=== PATIENT | female | born 1995 | race Caucasian/White ===

== ENCOUNTER 2020-01-21 11:35 | Outpatient (CLI) | payer OTHER ==
[2020-01-21 12:13] LABS: APPEARANCE,URINE CLEAR; BILIRUBIN,URINE NEGATIVE (NEGATIVE); COLOR,URINE YELLOW; GLUCOSE, URINE NEGATIVE (NEGATIVE); KETONES,URINE NEGATIVE (NEGATIVE); LEUKOCYTE ESTERASE,URINE NEGATIVE (NEGATIVE); NITRITE,URINE NEGATIVE (NEGATIVE); PROTEIN,URINE NEGATIVE (NEGATIVE); URINE SPECIFIC GRAVITY 1.011; UROBILINOGEN,URINE NEGATIVE mg/dL (<2.0)
[2020-01-21 12:27] LABS: EPITHELIALS (WET MOUNT) 3+ EPITHELIALS SEEN; RBCS (WET MOUNT) 3+ RBCS SEEN; T.VAGINALIS (WET MOUNT) NO TRICHOMONAS SEEN; WBCS (WET MOUNT) FEW WBCS SEEN; YEAST (WET MOUNT) NO YEAST SEEN
[2020-01-21 12:32] LABS: URINE AMPHETAMINES SCREEN NEGATIVE; URINE BARBITURATES SCREEN NEGATIVE; URINE BENZODIAZEPINES SCREEN NEGATIVE; URINE COCAINE SCREEN NEGATIVE; URINE MARIJUANA (THC) SCREEN NEGATIVE; URINE METHADONE SCREEN NEGATIVE; URINE PHENCYCLIDINE SCREEN NEGATIVE
[2020-01-21] MEDS ORDERED: RINGERS SOLUTION,LACTATED 1,000 ML IV PRN (12:33)
--- NOTE | 2020-01-21 13:11 | Non Stress Test Report ---
Non Stress Test Datetime Report Generated by CPN: 01/21/2020 13:10 DEMOGRAPHIC Test Number: 1 EGA NST: 33.3 INDICATION Indication for Study (NST) Other: vaginal bleeding MONITORING Monitor Explained: Monitor Explained; Test Explained; Patient Verbalized Understanding Time on Monitor: 01/21/2020 12:47 Time off Monitor: 01/21/2020 13:07 NST Duration: 20 NST INTERVENTIONS NST Interventions: IV Fluids Physician Notified NST: Dr Hernandez BABY A: [id number] BABY A Movement : Present Contraction Frequency : 4 FHR Baseline : 125 Accelerations : 15X15 Decelerations : None Variability : Moderate 6-25bpm NST Review: Meets Criteria for Reactive NST NST Review and Verified By : TMartin,RNC NST Results: Reactive NST REPORT Report Trigger: Send Report
[2020-01-21 13:54] LABS: CHLAM PCR NOT DETECTED (NOT DETECT)
== END 2020-01-21 13:43 | disposition home or self-care (01) ==
LOC: LC 11:35
PROVIDERS: ATTEND Obstetrics & Gynecology
DX: O46.93 Antepartum hemorrhage, unspecified, third trimester (principal); Z3A.33 33 weeks gestation of pregnancy
CPT/HCPCS: 59025; 80307; 81001; 87210; 87491; 87591

== ENCOUNTER 2020-02-12 15:04 | Outpatient (CLI) | payer OTHER | END 2020-02-12 15:55 | disposition home or self-care (01) | LOC: LC 15:04 | PROVIDERS: ATTEND Obstetrics & Gynecology | DX: O24.419 Gestational diabetes mellitus in pregnancy, unspecified control (principal); O13.3 Gestational [pregnancy-induced] hypertension without significant proteinuria, third trimester; Z3A.36 36 weeks gestation of pregnancy | CPT/HCPCS: 59025 ==

== ENCOUNTER 2020-03-04 05:11 | Inpatient (IN) | payer OTHER ==
[2020-03-04] MEDS ORDERED: OXYTOCIN/0.9 % SODIUM CHLORIDE 30 UNIT/500 ML RTUINJ IV PRN ×2 (05:21→19:25)
[2020-03-04] MEDS ORDERED: RINGERS SOLUTION,LACTATED 500 ML IV ONE (05:22)
[2020-03-04] MEDS ORDERED: OXYTOCIN 10 UNIT/ML VIAL ONE ×2 (06:21→17:36)
[2020-03-04] MEDS ORDERED: OXYTOCIN/0.9 % SODIUM CHLORIDE 30 UNIT/500 ML RTUINJ ONE ×2 (06:22→17:36)
[2020-03-04] MEDS ORDERED: MISOPROSTOL 0.2 MG TABLET ONE (06:22)
[2020-03-04] MEDS ORDERED: LIDOCAINE 1% INJ-PF (10 MG/ML) 30 ML SDV ONE (06:22)
[2020-03-04] MEDS: RINGERS SOLUTION,LACTATED 1,000 ML IV PRN ×2 (06:34→11:04)
[2020-03-04 06:37] LABS: ABSOLUTE EOSINOPHILS # (AUTO) 0.2 10^3/uL (0.0-0.6); ABSOLUTE MONOCYTES (AUTO) 0.6 10^3/uL (0.1-1.4); ABSOLUTE NEUT (AUTO) 6.4 10^3/uL (1.7-8.2); BASOPHILS % (AUTO) 0.4 % (0-2); EOSINOPHILS % (AUTO) 1.7 % (0-6); HEMATOCRIT 34.6 % (36.0-47.0); HEMOGLOBIN 12.3 g/dL (12.0-15.5); LYMPHOCYTES % (AUTO) 21.8 % (13-45); MEAN CORPUSCULAR HEMOGLOBIN 32.3 pg (27.0-33.4); MEAN CORPUSCULAR HGB CONC 35.5 g/dL (32.0-36.0); MEAN CORPUSCULAR VOLUME 91 fl (80-97); MONOCYTES % (AUTO) 6.6 % (3-13); PLATELET COUNT 163 10^3/uL (150-450); RED BLOOD COUNT 3.81 10^6/uL (3.72-5.28); RED CELL DISTRIBUTION WIDTH 13.7 % (11.5-14.0); SEGMENTED NEUTROPHILS % (AUTO) 69.5 % (42-78); TOTAL CELLS COUNTED % (AUTO) 100 %; WHITE BLOOD COUNT 9.2 10^3/uL (4.0-10.5)
--- NOTE | 2020-03-04 06:57 | Admission Physical ---
Datetime Report Generated by CPN: 03/04/2020 06:57 CURRENT ADMISSION Chief Complaint: Scheduled Induction of Labor Indication for Induction: Maternal Diabetes Admit Impression : Term, Intrauterine Admit Plan: Admit to Unit; Initiate Labor Protocol ALLERGIES Medication Allergies: Yes Medication Allergies: codeine (02/12/2020) Food Allergies: none Environmental Allergies: none OBSTETRICAL HISTORY EDC: 03/07/2020 00:00 : 3 Para: 1 Term: 0 : 1 (Annotations: Data stored by CPN on behalf of user) SAB: 1 Livin Cesareans: 0 Gestational Diabetes: Yes Rh Sensitization: No Incompetent Cervix: No BETTIE: No Infertility: No ART Treatment: No Uterine Anomaly: No IUGR: No Hx Previous C/S: No Macrosomia: No Hx Loss/Stillborn: No PIH: Yes Hx : No Placenta Previa/Abruption: No Depression/PP Depression: No PTL/PROM: Yes Post Hemorrhage: No Current Procedures: Ultrasound; NST Obstetrical History Comments: G1- 2011 SAB G22018- 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 Surgery: No Heart Disease: No Hosp/Surgery: Yes Autoimmune Disorder: No Anesthetic Complications: No Kidney Disease: No Abnormal Pap Smear: Yes Neuro/Epilepsy: No Psychiatric Disorders: No Other Medical Diseases: No Hepatitis/Liver Disease: No Significant Family History: No Varicosities/Phlebitis: No Trauma/Violence : No Thyroid Dysfunction: No Medical History Comments: wisdom teeth (2014) INFECTIOUS HISTORY Gonorrhea: No Genital Herpes: No Chlamydia: No Tuberculosis: No Syphilis: No Hepatitis: No HIV/AIDS Exposure: No Rash or Viral Illness: No HPV: No PHYSICAL EXAM General: Normal HEENT: Normal Neurologic: Normal Thyroid: Normal Heart: Normal Lungs: Normal Breast: Deferred Back: Normal Abdomen: Normal Genitourinary Exam: Normal Extremities: Normal DTRs: Normal Pelvic Type: Adequate FETUS A EGA: 39.4 PLANS FOR LABOR AND DELIVERY Labor and Delivery: None Pain Management: Natural; Medications Feeding Preference: Breast Benefit of Breast Feed Discussed: Yes Circumcision: Yes INFORMED CONSENT Signature: with User ID: [email or web address]
[2020-03-04 07:11] LABS: APPEARANCE,URINE SLIGHTLY-CLOUDY; BILIRUBIN,URINE NEGATIVE (NEGATIVE); COLOR,URINE YELLOW; GLUCOSE, URINE NEGATIVE (NEGATIVE); KETONES,URINE NEGATIVE (NEGATIVE); LEUKOCYTE ESTERASE,URINE SMALL (NEGATIVE); NITRITE,URINE NEGATIVE (NEGATIVE); PROTEIN,URINE 30 mg/dL (NEGATIVE); URINE SPECIFIC GRAVITY 1.023; UROBILINOGEN,URINE NEGATIVE mg/dL (<2.0)
[2020-03-04 07:57] LABS: URINE AMPHETAMINES SCREEN NEGATIVE; URINE BARBITURATES SCREEN NEGATIVE; URINE BENZODIAZEPINES SCREEN NEGATIVE; URINE COCAINE SCREEN NEGATIVE; URINE MARIJUANA (THC) SCREEN NEGATIVE; URINE METHADONE SCREEN NEGATIVE; URINE PHENCYCLIDINE SCREEN NEGATIVE
[2020-03-04] MEDS ORDERED: NALBUPHINE HCL INJ 10 MG/1 ML AMPULE ONE (14:41)
[2020-03-04] MEDS ORDERED: PROMETHAZINE HCL INJ 25 MG/1 ML VIAL ONE (14:41)
[2020-03-04] MEDS ORDERED: PROMETHAZINE HCL INJ 25 MG/1 ML VIAL IV ONE (15:00)
[2020-03-04] MEDS ORDERED: NALBUPHINE HCL INJ 10 MG/1 ML AMPULE INJ ONE (15:00)
[2020-03-04] MEDS ORDERED: MIDAZOLAM 2 MG/2 ML INJ ONE (17:36)
[2020-03-04] MEDS ORDERED: ONDANSETRON HCL INJ/PF 4 MG/2 ML SDV ONE (17:36)
[2020-03-04] MEDS ORDERED: FENTANYL CITRATE INJ/PF 100 MCG/2 ML AMPUL ONE (17:36)
[2020-03-04] MEDS ORDERED: CITRIC ACID/SODIUM CITRATE ORAL SOLN 15 ML UDCUP ONE (17:56)
[2020-03-04] MEDS ORDERED: CEFAZOLIN 2 GM/D5W RTU 2 GM/50 ML RTUPB IV ONE (17:56)
[2020-03-04] MEDS ORDERED: HYDROMORPHONE HCL INJ/PF 2 MG/ML AMPULE IV PRN (19:25)
[2020-03-04] MEDS ORDERED: PROMETHAZINE HCL INJ 25 MG/1 ML VIAL IV PRN (19:25)
[2020-03-04] MEDS ORDERED: MEASLES,MUMPS&RUBELLA VACC/PF 0.5 ML VIAL SUBCUT PRN (19:25)
[2020-03-04] MEDS ORDERED: OXYCODONE-ACETAMINOPHEN 5-325 MG TABLET PO PRN (19:25)
[2020-03-04] MEDS ORDERED: ACETAMINOPHEN 325 MG TABLET PO PRN (19:25)
[2020-03-04] MEDS ORDERED: RINGERS SOLUTION,LACTATED 1,000 ML IV PRN (19:25)
[2020-03-04] MEDS ORDERED: DIPH/PERTUSS(ACELL)/TETANUS VAC/PF 0.5 ML SYR (>=10YO) IM PRN (19:25)
[2020-03-04] MEDS ORDERED: SIMETHICONE 80 MG TAB.CHEW PO PRN (19:25)
--- NOTE | 2020-03-04 19:39 | Operative Report ---
Operative Report DATE OF SURGERY: 03/04/20 PREOPERATIVE DIAGNOSIS: Arrest of descent, desires a tubal ligation POSTOPERATIVE DIAGNOSIS: Same OPERATION: Primary via low transverse uterine incision and tubal ligation with [place] method SURGEON: VINCENT ESCOBEDO ANESTHESIA: Spinal TISSUE REMOVED OR ALTERED: Placenta COMPLICATIONS: None ESTIMATED BLOOD LOSS: 400 cc INTRAOPERATIVE FINDINGS: Viable crying at delivery, normal uterus tubes and ovaries PROCEDURE: Patient was taken to the OR and placed in supine position after her spinal anesthesia. She is prepared and draped in sterile fashion. Stephens was placed for drainage of the bladder. Low transverse incision was made and carried down the level of the fascia. The fascial incision was made with knife and extended bilaterally with curved Kern scissors. The fascia was off the rectus muscles using sharp and blunt dissection. The rectus muscles are in the midline. The peritoneum was entered without incident. Bladder blade was placed in uterine segment was identified. A low transverse incision was made creating a bladder flap. Bladder blade was placed low transverse uterine incision was made with the knife and extended with fingertips. The baby was delivered with some fundal pressure and the assistance of the vaginal hand. Mouth and nose were suctioned free. The cord is doubly clamped and cut. Baby is passed off to the water quality assistant in attendance. The placenta was manually extracted with trailing membranes. The uterus was externalized wrapped in a moist lap sponge. Uterine contents wiped free. Uterus was closed with a running locking layer of 0 chromic suture using the second layer to imbricate the first completing a double layer closure of the uterus. The serosa was closed with a running 2-0 chromic stitch. The pelvis was irrigated and suctioned free of fluid the uterus was replaced in the abdomen. The abdominal wall peritoneum was closed with running 2-0 chromic stitch. Fascia was closed with a running 0 Vicryl in 2 segments. Humberto's layer was brought together with 0 plain gut stitch and the skin was closed with running subcuticular 4-0 undyed Vicryl stitch. The wound was dressed mother and baby did well.
--- NOTE | 2020-03-04 20:06 | Operative Report ---
Nonrecallable Operative Report DATE OF SURGERY: 03/04/20 PREOPERATIVE DIAGNOSIS: Arrest of dilatation and desires tubal ligation POSTOPERATIVE DIAGNOSIS: Same OPERATION: Primary and tubal ligation using Kemp technique SURGEON: VINCENT ESCOBEDO ANESTHESIA: Spinal TISSUE REMOVED OR ALTERED: Fallopian tubes and placenta COMPLICATIONS: None ESTIMATED BLOOD LOSS: 250 INTRAOPERATIVE FINDINGS: Viable male and normal uterus tubes and ovaries PROCEDURE: This is an addendum to the op report. During the operation we did a Kemp tubal ligation. Each tube was inspected and followed out to its fimbriated end. The mesoappendix was cauterized for a 2 cm segment. Each end of the segment was doubly ligated with a 0 chromic suture. The 2 cm segment of fallopian tube was cut and passed off the field. The cut edge of each tube was cauterized with the Bovie cautery. This completed the tubal please refer to the report for the remainder of the case.
[2020-03-04] MEDS ORDERED: HYDROMORPHONE HCL INJ/PF 2 MG/ML AMPULE ONE (21:04)
[2020-03-04] MEDS: KETOROLAC TROMETHAMINE INJ/PF 30 MG/1 ML SDV IV SCH (22:50)
[2020-03-05] MEDS: IBUPROFEN 800 MG TABLET PO SCH ×5 (00:56→23:41)
[2020-03-05] MEDS: OXYCODONE-ACETAMINOPHEN 5-325 MG TABLET PO PRN ×3 (01:09→18:48)
[2020-03-05] MEDS: KETOROLAC TROMETHAMINE INJ/PF 30 MG/1 ML SDV IV SCH ×2 (06:22→14:42)
[2020-03-05 06:50] LABS: HEMATOCRIT 29.2 % (36.0-47.0); HEMOGLOBIN 10.4 g/dL (12.0-15.5); MEAN CORPUSCULAR HEMOGLOBIN 32.1 pg (27.0-33.4); MEAN CORPUSCULAR HGB CONC 35.5 g/dL (32.0-36.0); MEAN CORPUSCULAR VOLUME 91 fl (80-97); PLATELET COUNT 135 10^3/uL (150-450); RED BLOOD COUNT 3.22 10^6/uL (3.72-5.28); RED CELL DISTRIBUTION WIDTH 13.8 % (11.5-14.0); WHITE BLOOD COUNT 11.3 10^3/uL (4.0-10.5)
--- NOTE | 2020-03-05 09:17 | PDOC PROGRESS REPORT ---
Subjective-OB Progress Note for:: 03/05/20 Subjective: Doing well, pain under control, has murdock in, baby in room, eating, will get OOB today, no c/o Physical Exam (OB) Vital Signs: Temp Pulse Resp BP Pulse Ox 98.5 F 95 24 H 132/60 H 97 03/05/20 07:00 03/05/20 07:00 03/05/20 07:00 03/05/20 07:00 03/05/20 07:00 Intake & Output 03/04/20 03/05/20 03/06/20 06:59 06:59 06:59 Intake Total 558 Balance 558 Weight 118.3 kg - PIH/Pre-Eclampsia Headache: Absent Epigastric Pain: No Visual Changes: No - Dressing Removed: No Incision: Draining Closure Type: opsite - Maternal Morbidity 59. Maternal Morbidity (serious complications experinced by the mother associated with labor and delivery: None of the above - Lochia Lochia Amount: Small 10-25 ml Lochia Color: Rubra/Red - Abdomen Description: Tender, Soft Hernia Present: No Fundal Description: Firm, Midline Fundal Height: u/u - u/2 Objective-Diagnostic Laboratory: 03/05/20 06:31 03/05/20 06:31 WBC 11.3 H RBC 3.22 L Hgb 10.4 L Hct 29.2 L MCV 91 MCH 32.1 MCHC 35.5 RDW 13.8 Plt Count 135 L Assessment and Plan(PN) - Assessment and Plan (1) Anemia Qualifiers: Anemia type: unspecified type Qualified Code(s): D64.9 - Anemia, unspecified Is this a current diagnosis for this admission?: Yes (2) Delivery by section of full-term infant Is this a current diagnosis for this admission?: Yes - Time Spent with Patient Time with patient: Less than 15 minutes Medications reviewed and adjusted accordingly: Yes - Disposition Anticipated Discharge Disposition: Home, Self Care Anticipated Discharge Timeframe: within 24 hours
[2020-03-05] MEDS: PRENATAL VITAMIN W DHA CAPSULE PO SCH (11:52)
[2020-03-05] MEDS: DOCUSATE SODIUM 100 MG CAPSULE PO SCH ×2 (11:52→18:48)
[2020-03-06] MEDS: IBUPROFEN 800 MG TABLET PO SCH ×2 (06:38→12:54)
[2020-03-06] MEDS: PRENATAL VITAMIN W DHA CAPSULE PO SCH (09:23)
[2020-03-06] MEDS: DOCUSATE SODIUM 100 MG CAPSULE PO SCH (09:23)
--- NOTE | 2020-03-06 10:58 | PDOC DISCHARGE SUMMARY ---
Impression - Admit/DC Date/PCP Admission Date/Primary Care Provider: 03/04/20 05:11 Discharge Date: 03/06/20 - Discharge Diagnosis (1) Oral hypoglycemic controlled White classification A2 gestational diabetes mellitus (GDM) Is this a current diagnosis for this admission?: Yes (2) Encounter for induction of labor Is this a current diagnosis for this admission?: Yes (3) Anemia Is this a current diagnosis for this admission?: Yes (4) Delivery by section of full-term infant Is this a current diagnosis for this admission?: Yes - Additional Information Resuscitation Status: Full Code Discharge Diet: Regular Discharge Activity: Activity As Tolerated, Bedrest, No Lifting Over 10 Pounds, No Lifting/Push/Pulling, Pelvic Rest, No tub bath Prescriptions: Oxycodone HCl/Acetaminophen [Percocet 5-325 mg Tablet] 1 tab PO Q4HP PRN #30 tablet PRN Reason: For Pain Scale 3-5 Ibuprofen [Motrin 800 mg Tablet] 800 mg PO Q8HP PRN #60 tablet PRN Reason: Home Medications: Vit No.130/Iron/Folic [ Tablet] 1 each PO DAILY 01/21/20 Ibuprofen [Motrin 800 mg Tablet] 800 mg PO Q8HP PRN #60 tablet 03/06/20 Oxycodone HCl/Acetaminophen [Percocet 5-325 mg Tablet] 1 tab PO Q4HP PRN #30 tablet 03/06/20 HPI Gestational Age: 39 Reason(s) for Admission: Induction of Labor, Gestional Diabetes Procedures: NST, Management of Obstetric Complications Intrapartum Procedure(s): : Low Cervical, Transverse Hospital Course 59. Maternal Morbidity (serious complications experinced by the mother associated with labor and delivery: None of the above Results Laboratory Results: WBC 11.3 10^3/uL (4.0-10.5) H 03/05/20 06:31 RBC 3.22 10^6/uL (3.72-5.28) L 03/05/20 06:31 Hgb 10.4 g/dL (12.0-15.5) L 03/05/20 06:31 Hct 29.2 % (36.0-47.0) L 03/05/20 06:31 MCV 91 fl (80-97) 03/05/20 06:31 MCH 32.1 pg (27.0-33.4) 03/05/20 06:31 MCHC 35.5 g/dL (32.0-36.0) 03/05/20 06:31 RDW 13.8 % (11.5-14.0) 03/05/20 06:31 Plt Count 135 10^3/uL (150-450) L 03/05/20 06:31 Lymph % (Auto) 21.8 % (13-45) 03/04/20 05:53 Lares % (Auto) 6.6 % (3-13) 03/04/20 05:53 Eos % (Auto) 1.7 % (0-6) 03/04/20 05:53 Baso % (Auto) 0.4 % (0-2) 03/04/20 05:53 Absolute Neuts (auto) 6.4 10^3/uL (1.7-8.2) 03/04/20 05:53 Absolute Lymphs (auto) 2.0 10^3/uL (0.5-4.7) 03/04/20 05:53 Absolute Monos (auto) 0.6 10^3/uL (0.1-1.4) 03/04/20 05:53 Absolute Eos (auto) 0.2 10^3/uL (0.0-0.6) 03/04/20 05:53 Absolute Basos (auto) 0.0 10^3/uL (0.0-0.2) 03/04/20 05:53 Seg Neutrophils % 69.5 % (42-78) 03/04/20 05:53 Urine Color YELLOW 03/04/20 06:25 Urine Appearance SLIGHTLY-CLOUDY 03/04/20 06:25 Urine pH 6.0 (5.0-9.0) 03/04/20 06:25 Ur Specific [place] 1.023 03/04/20 06:25 Urine Protein 30 mg/dL (NEGATIVE) H 03/04/20 06:25 Urine Glucose (UA) NEGATIVE mg/dL (NEGATIVE) 03/04/20 06:25 Urine Ketones NEGATIVE mg/dL (NEGATIVE) 03/04/20 06:25 Urine Blood NEGATIVE (NEGATIVE) 03/04/20 06:25 Urine Nitrite NEGATIVE (NEGATIVE) 03/04/20 06:25 Urine Bilirubin NEGATIVE (NEGATIVE) 03/04/20 06:25 Urine Urobilinogen NEGATIVE mg/dL (<2.0) 03/04/20 06:25 Ur Leukocyte Esterase SMALL (NEGATIVE) H 03/04/20 06:25 Urine WBC (Auto) 4 /HPF 03/04/20 06:25 Urine RBC (Auto) 1 /HPF 03/04/20 06:25 Urine Bacteria (Auto) TRACE /HPF 03/04/20 06:25 Squamous Epi Cells Auto 4 /HPF 03/04/20 06:25 Urine Mucus (Auto) RARE /LPF 03/04/20 06:25 Urine Ascorbic Acid NEGATIVE (NEGATIVE) 03/04/20 06:25 Urine Opiates Screen NEGATIVE 03/04/20 06:25 Urine Methadone Screen NEGATIVE 03/04/20 06:25 Ur Barbiturates Screen NEGATIVE 03/04/20 06:25 Ur Phencyclidine Scrn NEGATIVE 03/04/20 06:25 Ur Amphetamines Screen NEGATIVE 03/04/20 06:25 U Benzodiazepines Scrn NEGATIVE 03/04/20 06:25 Urine Cocaine Screen NEGATIVE 03/04/20 06:25 U Marijuana (THC) Screen NEGATIVE 03/04/20 06:25 RPR NONREACTIVE (NONREACTIVE) 03/04/20 05:53 Blood Type B POSITIVE 03/04/20 05:53 Antibody Screen NEGATIVE 03/04/20 05:53 Plan Time Spent: Less than 30 Minutes
[2020-03-06 11:19] VITALS: BP 135/62
--- NOTE | 2020-03-07 12:29 | Delivery Summary ---
Del Sum A-C Datetime Report Generated by CPN: 03/07/2020 12:28 DELIVERY PERSONNEL DELIVERY PERSONNEL: [id number] Delivery Doctor:: Selvin Perera MD Delivery Doctor:: Selvin Perera MD 911 EMERGENCY DISPATCHER:: Edmunod Zuñiga CRNA 911 EMERGENCY DISPATCHER:: Katie Mandel CRNA Labor and Delivery Nurse:: Kita Mack RN Transportation Equipment Painter:: Kita Mack RN Neonatal Nurse Practitioner:: KURT Lockett Call Specialist/DBA MANAGER: Jane Ramirez CST Call Specialist/DBA MANAGER: Sherry Oneal [employer] TECHNICIAN MATERNAL INFORMATION Delivery Anesthesia: Spinal Medications After Delivery: Pitocin 30 Units in 500ml NS/D5W Delivery QBL: 1005 Maternal Complications: None LABOR SUMMARY EDC: 03/07/2020 00:00 No. Babies in Womb: 1 Attempted: No Labor Anesthesia: None LABOR INFORMATION Reason for Induction: Maternal Diabetes Onset of Labor: 03/04/2020 12:44 Complete Dilatation: 03/04/2020 16:16 Oxytocin: Induction Group B Beta Strep: Negative Antibiotics # of Doses: 1 Name of Antibiotic Given: Ancef 2gm Steroids Given: None Reason Steroids Not Administered: Not Applicable MEMBRANES Membranes Rupture Method: Artificial Rupture of Membranes: 03/04/2020 12:44 Length of Rupture (hr): 5.87 Amniotic Fluid Color: Clear Amniotic Fluid Amount: Moderate Amniotic Fluid Odor: None STAGES OF LABOR Stage 1 hr: 3 Stage 1 min: 32 Stage 2 hr: 2 Stage 2 min: 20 VAGINAL DELIVERY Episiotomy: None Laceration #1: None Laceration Extension #1: N/A Laceration Repair: Not Applicable Sharps Count Correct: N/A CSECTION DELIVERY Primary Indication: Arrest of Descent Secondary Indication: N/A CSection Urgency: Non-Scheduled CSection Incidence: Primary Labor: Labor Elective: Nonelective CSection Incision: Lower Uterine Transverse CSection Incision: Lower Uterine Transverse Sterilization Procedure: [place] BABY A INFORMATION Infant Delivery Date/Time: 03/04/2020 18:36 Method of Delivery: Nurse Controlled Delivery: No Born in Route : No : N/A Forceps: N/A Vacuum Extraction: N/A Shoulder Dystocia : No PRESENTATION/POSITION BABY A Presentation: Cephalic Presentation: Cephalic Cephalic Presentation: Vertex Breech Presentation: N/A PLACENTA INFORMATION BABY A Placenta Method of Delivery: Manual Removal Placenta Status: Delivered SCORES BABY A Heart Rate 1 min: >100 bpm Resp Effort 1 min: Good Cry Reflex Irritability 1 min: Cough or Sneeze or Pulls Away Muscle Tone 1 min: Some Flexion of Extremities Color 1 min: Body [place], Extremities Blue Resuscitation Effort 1 min: Tactile Stimulation SCORE 1 MIN: 8 Heart Rate 5 min: >100 bpm Resp Effort 5 min: Good Cry Reflex Irritability 5 min: Cough or Sneeze or Pulls Away Muscle Tone 5 min: Active Motion Color 5 min: Body [place], Extremities Blue Resuscitation Effort 5 min: N/A SCORE 5 MIN: 9 INFANT INFORMATION BABY A Gestational Age at Delivery: 39.4 Gestational Status: Full Term- 39- 40.6 Weeks Infant Outcome : Liveborn Infant Condition : Stable Infant Sex: Male IDENTIFICATION BABY A Verification Date/Time: 03/04/2020 19:07 ID Band Number: [id number] Mother's Name Verified: Yes RN Verifying : TMartin,RNC Additional Verifying Personnel: NIKOLAI Wolfe WEIGHT/LENGTH BABY A Infant Birthweight (gm): 4480 Weight (lb): 9 Weight (oz): 14 Infant Length (in): 21.50 Infant Length (cm): 54.61 CORD INFORMATION BABY A No. Cord Vessels: 3 Cord Blood Taken: Yes-For Storage (Mom's Blood type +) ASSESSMENT BABY A Skin to Skin: Yes Skin to Skin Time (min): 20
== END 2020-03-06 14:13 | disposition home or self-care (01) | DRG 785 ==
LOC: LR 05:11 → 2S 22:34
PROVIDERS: ADMIT Obstetrics & Gynecology; ATTEND Obstetrics & Gynecology
PROC: 10D00Z1 Extraction of Products of Conception, Low, Open Approach (ICD-10-PCS; principal; 2020-03-04)
PROC: 0U570ZZ Destruction of Bilateral Fallopian Tubes, Open Approach (ICD-10-PCS; 2020-03-04)
PROC: 10907ZC Drainage of Amniotic Fluid, Therapeutic from Products of Conception, Via Natural or Artificial Opening (ICD-10-PCS; 2020-03-04)
PROC: 3E033VJ Introduction of Other Hormone into Peripheral Vein, Percutaneous Approach (ICD-10-PCS; 2020-03-04)
DX: O24.425 Gestational diabetes mellitus in childbirth, controlled by oral hypoglycemic drugs (principal); O62.1 Secondary uterine inertia; Z3A.39 39 weeks gestation of pregnancy; Z37.0 Single live birth; Z30.2 Encounter for sterilization; O99.02 Anemia complicating childbirth; Z88.6 Allergy status to analgesic agent
CPT/HCPCS: 1961; 36415; 80307; 81001; 85025; 85027; 86592; 86850; 86900; 86901; 88302; 94760; 94799; J0690; J1170; J1885; J2250; J2300; J2405; J2550; J2590; J3010; J3490; J7120